=== PATIENT | female | born 1980 | race African-American/Black ===

== ENCOUNTER 2024-01-07 17:17 | Emergency (ER) | payer MEDICAID ==
[~2024-01-07] VITALS: Ht 162.6 cm; Wt 75.0 kg
[2024-01-07 17:23] VITALS: O2SAT 99
[2024-01-07] MEDS ORDERED: BO1 TP (20:55)
[2024-01-07] MEDS ORDERED: IBUP-2029 MT (20:55)
[2024-01-07] MEDS: IBUPROFEN 600MG TABLET PO ONE (21:54)
[2024-01-07] MEDS: TETANUS, DIPHTHERIA, PERTUSSIS VAC/PF 0.5ML (>10YR OLD) IM ONE (21:55)
[2024-01-07 21:58] VITALS: BP 118/72; PULSE 65; RESP 17; TEMP 37.05852; O2SAT 98
== END 2024-01-07 22:04 | disposition home or self-care (01) ==
LOC: ER 17:17
DX: S80.02XA Contusion of left knee, initial encounter (principal); S80.01XA Contusion of right knee, initial encounter; W18.39XA Other fall on same level, initial encounter; Y93.89 Activity, other specified; Y92.89 Other specified places as the place of occurrence of the external cause; Y99.8 Other external cause status
CPT/HCPCS: 73562; 73590; 90471; 90715; 99284